=== PATIENT | female | born 1980 | race Caucasian/White ===

== ENCOUNTER 2019-10-07 09:51 | Emergency (ER) | payer OTHER, SELFPAY ==
[2019-10-07 10:33] LABS: Absolute Lymphocytes (CBC) 1.2 K/uL (0.7-4.9); Basophils % 0.4 % (0-1.3); Hematocrit 42.1 % (36.0-45.0); Lymphocytes % 14.2 % (15.3-44.8); MPV 7.6 fL (7.6-11.3); RBC Red Blood Cell Count 4.37 M/uL (3.86-4.86)
[2019-10-07 10:52] LABS: BUN Blood Urea Nitrogen 4 mg/dL (7-18); Bicarbonate 24 mmol/L (21-32); Glucose Level 113 mg/dL (74-106); Potassium 3.4 mmol/L (3.5-5.1); Sodium Level 140 mmol/L (136-145)
--- NOTE | 2019-10-07 11:36 | RAD REPORT ---
EXAM DESCRIPTION: Maribell Single View10/07/2019 10:45 am CLINICAL HISTORY: cough COMPARISON: 2012 FINDINGS: The lungs appear clear of acute infiltrate. The heart is normal size IMPRESSION: No acute abnormalities displayed
--- NOTE | 2019-10-07 11:39 | EDPHYS ---
Physician Documentation [facility] Name: Dinora Crocker Age: 39 yrs Sex: Female : 1980 Arrival Date: 10/07/2019 Time: 09:53 Bed 14 Private MD: ED Physician Martín Bran HPI: 10/06 10:14 This 39 yrs old Female presents to ER via Unassigned with complaints of rn Breathing Difficulty, Nausea. 10:14 The patient has shortness of breath at rest. Onset: The symptoms/episode began/occurred rn yesterday. Duration: The symptoms are intermittent. The patient's shortness of breath is aggravated by coughing, supine position. Associated signs and symptoms: Pertinent positives: non-productive cough, diarrhea, Pertinent negatives: chest pain, hemoptysis. Severity of symptoms: At their worst the symptoms were mild in the emergency department the symptoms are unchanged. The patient has not experienced similar symptoms in the past. The patient has been recently seen by a physician:. Reports 1 week of not feeling ok, with runny nose/non-productive cough/diarrhea/fatigue. Had telemedicine visit, given cough medication and augmentin, shortness of breath began yesterday. + smoker. . 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 - Social history:: Smoking status: Patient reports the use of cigarette tobacco products, smokes one pack cigarettes per day. - Family history:: not pertinent. - Hospitalizations: : No recent hospitalization is reported. 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 Exam: 10:14 Constitutional: This is a well developed, well nourished patient who is awake, alert, rn and in no acute distress. Head/Face: Normocephalic, atraumatic. Eyes: Conjunctiva and sclera are non-icteric and not injected. Neck: trachea midline, non-tender mild cervical LAD Cardiovascular: Regular rate and rhythm. No pulse deficits. Respiratory: No increased work of breathing, no retractions or nasal flaring. Speaking full sentences Skin: Dry, no diaphoresis Neuro: Awake and alert, GCS 15 11:03 ECG was reviewed by the Attending Physician. rn Vital Signs: 10:00 BP 116 / 77; Pulse 99; Resp 19 S; Temp 98.7(O); Pulse Ox 100% on R/A; Pain 0/10; jl7 11:30 BP 110 / 75; Pulse 89; Resp 16 S; Pulse Ox 100% on R/A; jl7 MDM: 09:56 Patient medically screened. rn 10:26 ED course: Already swabbed for COVID-19 yesterday. . rn 11:10 ED course: Pt has not had a PE in > 20 years, has subjective fever/nasal congestion/dry rn cough. Will add steroids and inhaler with return precautions. Already on Abx. Seems more viral but will complete her abx. Will isolate at home awaiting her COVID testing.. 11:38 Differential diagnosis: Bronchitis Chronic Obstructive Pulmonary Disease pneumonia, rn Pneumothorax pulmonary edema, reactive airway disease. Data reviewed: vital signs, nurses notes, lab test result(s), EKG, radiologic studies, plain films, and as a result, I will discharge patient. Test interpretation: by ED physician or midlevel provider: ECG, plain radiologic studies, CXR neg for acute infiltrate. Counseling: I had a detailed discussion with the patient and/or guardian regarding: the historical points, exam findings, and any diagnostic results supporting the discharge/admit diagnosis, lab results, radiology results, the need for outpatient follow up, to return to the emergency department if symptoms worsen or persist or if there are any questions or concerns that arise at home. Special discussion: I discussed with the patient/guardian in detail that at this point there is no indication for admission to the hospital. It is understood, however, that if the symptoms persist or worsen the patient needs to return immediately for re-evaluation. 10/06 10:14 Order name: CBC with Diff; Complete Time: 11:07 rn 10/06 10:14 Order name: Basic Metabolic Panel; Complete Time: 11:07 rn 10/06 10:14 Order name: XRAY Chest (1 view); Complete Time: 11:38 rn 10/06 10:14 Order name: Flu; Complete Time: 11: rn 10/06 10:14 Order name: Strep; Complete Time: 11: rn 10/06 11:08 Order name: Throat Culture EDMS 10/06 10:14 Order name: IV Start; Complete Time: 10:44 rn 10/06 10:14 Order name: EKG; Complete Time: 10:14 rn 10/06 10:14 Order name: EKG - Nurse/Tech; Complete Time: 11:05 rn EC:03 Rate is 80 beats/min. Rhythm is regular. QRS [place] is Normal. AR interval is shortened rn at 110 msec. QRS interval is normal. QT interval is normal. No Q waves. T waves are Normal. No ST changes noted. Clinical impression: Normal ECG and Short AR. Interpreted by me. Reviewed by me. Administered Medications: 12:02 Drug: Zofran (Ondansetron) 4 mg Route: IVP; Site: right antecubital; jl7 12:10 Follow up: Response: No adverse reaction; Nausea is decreased jl7 Disposition: 10/07/19 11:39 Discharged to Home. Impression: Dyspnea, unspecified, Viral Syndrome. - Condition is Stable. - Discharge Instructions: Shortness of Breath, Steps to Quit Smoking, Viral Respiratory Infection. - Prescriptions for Prednisone 20 mg Oral Tablet - take 3 tablet by ORAL route once daily for 5 days; 15 tablet. Albuterol Sulfate 90 mcg/actuation - inhale 1-2 puff by INHALATION route every 4-6 hours; 1 Inhaler. Zofran ODT 4 mg Oral tablet,disintegrating - place 1 tablet by TRANSLINGUAL route every 8 hours As needed; 20 tablet. - Medication Reconciliation Form, Thank You Letter, Antibiotic Education, Prescription Opioid Use form. - Follow up: Private Physician; When: As needed; Reason: Recheck today's complaints, Re-evaluation by your physician. - Problem is new. - Symptoms have improved. Signatures: Dispatcher [employer] EDMartín Jama MD MD rn Leal, Jahala, RN RN jl7 Corrections: (The following items were deleted from the chart) 12:14 11:39 10/07/2019 11:39 Discharged to Home. Impression: Dyspnea, unspecified; Viral jl7 Syndrome. Condition is Stable. Discharge Instructions: Shortness of Breath, Steps to Quit Smoking, Viral Respiratory Infection. Prescriptions for Prednisone 20 mg Oral Tablet - take 3 tablet by ORAL route once daily for 5 days; 15 tablet, Albuterol Sulfate 90 mcg/actuation - inhale 1-2 puff by INHALATION route every 4-6 hours; 1 Inhaler. and Forms are Medication Reconciliation Form, Thank You Letter, Antibiotic Education, Prescription Opioid Use. Follow up: Private Physician; When: As needed; Reason: Recheck today's complaints, Re-evaluation by your physician. Problem is new. Symptoms have improved. rn
--- NOTE | 2019-10-07 11:39 | ER ---
Nurse's Notes [facility] Name: Dinora Crocker Age: 39 yrs Sex: Female : 1980 Arrival Date: 10/07/2019 Time: 09:53 Bed 14 Private MD: Diagnosis: Dyspnea, unspecified;Viral Syndrome Presentation: 10/06 10:00 Chief complaint: Patient states: Diarrhea started Wednesday, cough and shortness of breath jl7 with temp of 99.5 started Wednesday, shortness of breath got worse yesterday. Was swabbed for the flu and COVID-19 yesterday at 1720 and have not gotten results, "I still feel like I cannot breath.". Coronavirus screen: Surgical mask placed on patient. Patient moved to private room, placed in contact and droplet isolation with eye protection until further assessment. Patient reports a cough. Patient reports shortness of breath or difficulty breathing. Patient denies measured and/or subjective temperature greater than 100.4F. Patient denies travel on a cruise ship or to a country the [facility] currently lists as an affected area. Patient denies contact with known and/or suspected case of COVID-19. Ebola Screen: No symptoms or risks identified at this time. Initial Sepsis Screen: Does the patient meet any 2 criteria? No. Patient's initial sepsis screen is negative. Does the patient have a suspected source of infection? No. Patient's initial sepsis screen is negative. Risk Assessment: Do you want to hurt yourself or someone else? Patient reports no desire to harm self or others. Onset of symptoms was October 02, 2019. 10:00 Method Of Arrival: Ambulatory jl7 10:00 Acuity: FRANCY 3 jl7 Triage Assessment: 10:00 General: Appears in no apparent distress. uncomfortable, Behavior is calm, cooperative, jl7 appropriate for age. Pain: Denies pain. EENT: Throat is clear. Neuro: Level of Consciousness is awake, alert, obeys commands, Oriented to person, place, time, situation. Cardiovascular: Patient's skin is warm and dry. Respiratory: Reports shortness of breath at rest Onset: The symptoms/episode began/occurred gradually, the patient has mild shortness of breath. Derm: Skin is pink, warm \\T\\ dry. 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 - Social history:: Smoking status: Patient reports the use of cigarette tobacco products, smokes one pack cigarettes per day. - Family history:: not pertinent. - Hospitalizations: : No recent hospitalization is reported. Screenin:30 Abuse screen: Denies threats or abuse. Denies injuries from another. Nutritional jl7 screening: No deficits noted. Tuberculosis screening: No symptoms or risk factors identified. Fall Risk IV access (20 points). Assessment: 10:00 General: See triage assessment. jl7 11:05 Reassessment: Patient appears in no apparent distress at this time. Patient and/or jl7 family updated on plan of care and expected duration. Pain level reassessed. Patient is alert, oriented x 3, equal unlabored respirations, skin warm/dry/pink. Cardiovascular: Rhythm is regular. Respiratory: Airway is patent Respiratory effort is even, unlabored, Respiratory pattern is regular, symmetrical, Not auscultated. Vital Signs: 10:00 BP 116 / 77; Pulse 99; Resp 19 S; Temp 98.7(O); Pulse Ox 100% on R/A; Pain 0/10; jl7 11:30 BP 110 / 75; Pulse 89; Resp 16 S; Pulse Ox 100% on R/A; jl7 ED Course: 09:53 Patient arrived in ED. ag5 09:56 Martín Bran MD is Attending Physician. rn 09:58 Taty Ayala RN is Primary Nurse. jl7 10:00 Arm band placed on right wrist. jl7 10:30 Patient has correct armband on for positive identification. Bed in low position. Call jl7 light in reach. Side rails up X 1. Pulse ox on. NIBP on. 10:30 Initial lab(s) drawn, by me, sent to lab. Flu and/or RSV swab sent to lab. Strep swab jl7 sent to lab. Inserted saline lock: 22 gauge in right antecubital area, using aseptic technique. Blood collected. 10:32 Triage completed. jl7 10:45 XRAY Chest (1 view) In Process Unspecified. EDMS 11:07 EKG done. jl7 12:12 No provider procedures requiring assistance completed. IV discontinued, intact, jl7 bleeding controlled, No redness/swelling at site. Pressure dressing applied. Administered Medications: 12:02 Drug: Zofran (Ondansetron) 4 mg Route: IVP; Site: right antecubital; jl7 12:10 Follow up: Response: No adverse reaction; Nausea is decreased jl7 Outcome: 11:39 Discharge ordered by . rn 12:12 Discharged to home ambulatory. jl7 12:12 Condition: stable 12:12 Discharge instructions given to patient, Instructed on discharge instructions, follow up and referral plans. medication usage, Demonstrated understanding of instructions, follow-up care, medications, Prescriptions given X 3. 12:14 Patient left the ED. jl7 Signatures: Dispatcher [employer] EDMS Martín Bran MD MD rn Leal, Jahala, RN RN jl7 Gaskin, Ajare ag5
[2019-10-07] MEDS ORDERED: ONDANSETRON 4 MG/2 ML VIAL ONE (12:06)
[2019-10-07 12:21] VITALS: TEMP 98.7; O2SAT 100
[2019-10-07 12:23] VITALS: BP 110/75
--- NOTE | 2019-10-09 16:52 | EKG ---
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
== END 2019-10-07 12:14 | disposition home or self-care (01) ==
LOC: ER 09:51
DX: B34.9 Viral infection, unspecified (principal); R06.00 Dyspnea, unspecified; Z88.6 Allergy status to analgesic agent; Z88.1 Allergy status to other antibiotic agents; F17.210 Nicotine dependence, cigarettes, uncomplicated
CPT/HCPCS: 36415; 71045; 80048; 85025; 87070; 87081; 87804; 93005; 96374; 99284; J2405

== ENCOUNTER 2020-01-31 13:00 | Emergency (ER) | payer SELFPAY ==
[2020-01-31 13:44] LABS: Absolute Lymphocytes (CBC) 1.8 K/uL (0.7-4.9); Basophils % 0.6 % (0-1.3); Hematocrit 42.3 % (36.0-45.0); MPV 7.6 fL (7.6-11.3); RBC Red Blood Cell Count 4.45 M/uL (3.86-4.86)
[2020-01-31] MEDS ORDERED: MORPHINE 4 MG/ML SYR ONE (13:47)
[2020-01-31] MEDS ORDERED: ONDANSETRON 4 MG/2 ML VIAL ONE (13:47)
[2020-01-31 14:01] LABS: Bilirubin Direct 0.1 mg/dL (0-0.2); Bilirubin Total 0.6 mg/dL (0.2-1.0); Protein, Total 8.2 g/dL (6.4-8.2)
--- NOTE | 2020-01-31 14:48 | RAD REPORT ---
EXAM DESCRIPTION: CT - Abdomen Pelvis W Contrast - 01/31/2020 2:16 pm CLINICAL HISTORY: ABD PAIN, patient details chronic abdominal pain with worsening left-sided pain fo r the last 3 days, prior hysterectomy COMPARISON: CT ABD PELVIS W CONTRAST dated 10/15/2012 TECHNIQUE: Biphasic, helical CT imaging of the abdomen and pelvis was performed following 100 ml non -ionic IV contrast. No oral contrast administered. All CT scans are performed using dose optimization technique as appropriate and may include automated exposure control or mA/KV adjustment according to patient size. FINDINGS: No suspicious findings in the lung bases. Diffuse fatty infiltration present in the liver. Portal vein shows no suspicious finding. No focal li bartolo lesion. Spleen and pancreas without significant finding. Gallbladder and biliary tree are also wi thout suspicious finding. Symmetric renal function is seen with no hydronephrosis or suspicious renal mass. No pyelonephritis o r acute parenchymal process. Urinary bladder is fully contracted limiting detail. Phleboliths are see n in the pelvis. No adrenal abnormalities. Uterus is absent. Slight fullness of the left ovary is imp roved since prior imaging. No right ovarian abnormality. No dilated bowel loops or bowel wall thickening. Patient has very few left-sided diverticula. No dive rticulitis findings. No free air, free fluid or inflammatory stranding. No hernia, mass or bulky lym phadenopathy. Advanced for age degenerative change present at the L5-S1 disc space. Disc space is narrowed. There a re sclerotic changes the endplates, endplate spurring and degenerative gas in the disc space. IMPRESSION: As detailed above, contrast-enhanced CT abdomen and pelvis imaging shows no acute or act ngozi process. Specifically, no abnormality to explain left-sided abdominal pain. Patient has diffuse fatty infiltration of the liver. Patient has very advanced for age degenerative change at the L5-S1 disc level.
--- NOTE | 2020-01-31 15:05 | ER ---
Nurse's Notes [facility] Name: Dinora Crocker Age: 39 yrs Sex: Female : 1980 Arrival Date: 01/31/2020 Time: 13:02 Bed 5 Private MD: Diagnosis: Abdominal and pelvic pain Presentation: 01/30 13:10 Chief complaint: Patient states: has had gas pains for years, left sided abd pain X 3 iw days, pain radiates upward, worse after eating and lying on side, also has nausea and mild diarrhea. Coronavirus screen: Patient denies a cough. Patient denies shortness of breath or difficulty breathing. Patient denies measured and/or subjective temperature greater than 100.4F prior to today's visit. Patient denies travel on a cruise ship or to a country the [facility] currently lists as an affected area. Patient denies contact with known and/or suspected case of COVID-19. Ebola Screen: Patient negative for fever greater than or equal to 101.5 degrees Fahrenheit, and additional compatible Ebola Virus Disease symptoms Patient denies exposure to infectious person. Patient denies travel to an Ebola-affected area in the 21 days before illness onset. No symptoms or risks identified at this time. Initial Sepsis Screen: Does the patient meet any 2 criteria? No. Patient's initial sepsis screen is negative. Does the patient have a suspected source of infection? No. Patient's initial sepsis screen is negative. Risk Assessment: Do you want to hurt yourself or someone else? Patient reports no desire to harm self or others. Onset of symptoms was January 28, 2020. 13:10 Method Of Arrival: Ambulatory iw 13:10 Acuity: FRANCY 3 iw Triage Assessment: 13:19 General: Appears in no apparent distress. Behavior is calm, cooperative. Pain: ks7 Complains of pain in abdomen left side. GI: Reports lower abdominal pain, diarrhea, nausea, since 3 days, left sided. 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 - Social history:: Smoking status: Patient/guardian denies using tobacco, Stopped _ months ago 4. Screenin:43 Abuse screen: Denies threats or abuse. Denies injuries from another. Nutritional ks7 screening: No deficits noted. Tuberculosis screening: No symptoms or risk factors identified. Fall Risk None identified. Assessment: 13:42 Reassessment: attempted to start NS IV fluids, IV infiltrated. will start another line. ks7 13:43 Reassessment: Patient is alert, oriented x 3, equal unlabored respirations, skin ks7 warm/dry/pink. General: Appears uncomfortable, Behavior is calm, cooperative. Pain: Complains of pain in abdomen left upper and lower Pain currently is 4 out of 10 on a pain scale. at worst was 8 out of 10 on a pain scale. Quality of pain is described as shooting, Pain began 2-3 days ago. GI: Bowel sounds present X 4 quads. Abd is soft and non tender in left upper quadrant and left lower quadrant Abd is soft Reports diarrhea, nausea. 14:30 Reassessment: Patient is alert, oriented x 3, equal unlabored respirations, skin ks7 warm/dry/pink. 15:30 Reassessment: Patient is alert, oriented x 3, equal unlabored respirations, skin ks7 warm/dry/pink. Vital Signs: 13:10 BP 109 / 77; Pulse 99; Resp 16 S; Pulse Ox 97% on R/A; Weight 86.18 kg; Height 5 ft. 5 iw in. (165.10 cm); Pain 5/10; 13:19 BP 97 / 74; Pulse 95; Resp 18; Pulse Ox 97% on R/A; ks7 13:46 BP 110 / 74; Pulse 89; Resp 18; Pulse Ox 97% on R/A; Pain 4/10; ks7 14:30 BP 99 / 60; Pulse 66; Resp 18; Temp 99(O); Pulse Ox 99% ; Pain 2/10; ks7 15:29 BP 106 / 69; Pulse 65; Resp 18; Temp 99.1; Pulse Ox 99% ; Pain 2/10; ks7 15:30 Pain 2/10; ks7 15:31 Pulse Ox 99% ; Pain 2/10; ks7 13:10 Body Mass Index 31.62 (86.18 kg, 165.10 cm) iw ED Course: 13:02 Patient arrived in ED. as 13:07 Verona Amaro, ZENIA is Primary Nurse. ks7 13:10 Efrain Huerta MD is Attending Physician. kdr 13:13 Triage completed. iw 13:15 Arm band placed on. iw 13:25 Inserted saline lock: 20 gauge in right antecubital area, using aseptic technique. mt Blood collected. 13:42 Basic Metabolic Panel Sent. ks7 13:42 CBC with Diff Sent. ks7 13:42 Hepatic Function Sent. ks7 13:42 Lipase Sent. ks7 13:43 pt ambulated to bathroom, steady on feet. urine sample collected. ks7 13:43 Patient has correct armband on for positive identification. Bed in low position. Call ks7 light in reach. Side rails up X2. 13:43 No provider procedures requiring assistance completed. IV discontinued, intact, ks7 bleeding controlled, No redness/swelling at site. R AC IV infiltrated. 13:52 Inserted saline lock: 22 gauge in left forearm, using aseptic technique. jl7 14:14 CT Abd/Pelvis - IV Contrast Only In Process Unspecified. EDMS 14:30 Patient moved back from CT. ks7 15:30 IV discontinued, intact, bleeding controlled, No redness/swelling at site. Pressure ks7 dressing applied. Administered Medications: Discontinued: NS 0.9% 1000 ml IV at 1 bolus Per protocol; 1000 mL bolus 13:51 Drug: NS 0.9% 1000 ml Route: IV; Rate: 1 bolus; Site: left forearm; jl7 13:51 Drug: morphine 4 mg Route: IVP; Site: left forearm; jl7 15:30 Follow up: Pain 2/10 Adult ks7 13:51 Drug: Zofran (Ondansetron) 4 mg Route: IVP; Site: left forearm; jl7 15:31 Follow up: Pulse Ox 99% ; Pain 2/10 Adult ks7 Outcome: 15:04 Discharge ordered by . kdr 15:30 Discharged to home ambulatory. ks7 15:30 Condition: good 15:30 Discharge instructions given to patient, Instructed on discharge instructions, medication usage, Demonstrated understanding of instructions, medications, Prescriptions given X 4. 15:32 Patient left the ED. ks7 Signatures: Dispatcher [employer] EDMS Efrain Huerta MD MD kdr Martinez, Amelia as Williams, Irene, RN RN iw Taty Ayala RN RN jl7 Thompson, Moriah mt Songcuan, Kathleen, RN RN ks7 Corrections: (The following items were deleted from the chart) 13:15 13:13 PMHx: NTHFR; rosio avelar
--- NOTE | 2020-01-31 15:05 | EDPHYS ---
Physician Documentation [facility] Name: Dinora Crocker Age: 39 yrs Sex: Female : 1980 Arrival Date: 01/31/2020 Time: 13:02 Bed 5 Private MD: ED Physician Efrain Huerta HPI: 01/30 14:51 This 39 yrs old Female presents to ER via Ambulatory with complaints of kdr Abdominal Pain. 14:51 The patient presents with abdominal pain in the epigastric area, in the upper abdomen, kdr in the left upper quadrant. Onset: The symptoms/episode began/occurred gradually, 3 day(s) ago. The symptoms do not radiate. Associated signs and symptoms: Pertinent positives: nausea, Pertinent negatives: anorexia, blood in stools, chest pain, constipation, diarrhea, dysuria, fever, headache, hematuria, palpitations, shortness of breath, vaginal discharge, vomiting. Modifying factors: The symptoms are alleviated by nothing, the symptoms are aggravated by breathing deeply, medication(s), touching the area, walking. Severity of pain: At its worst the pain was moderate severe just prior to arrival, in the emergency department the pain has improved. The patient has not experienced similar symptoms in the past, States she has had chronic gas pain but this is different and worse today. The patient has not recently seen a physician. 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 - Social history:: Smoking status: Patient/guardian denies using tobacco, Stopped _ months ago 4. ROS: 14:51 Constitutional: Negative for fever, chills, and weight loss, Eyes: Negative for injury, kdr pain, redness, and discharge, ENT: Negative for injury, pain, and discharge, Neck: Negative for injury, pain, and swelling, Cardiovascular: Negative for chest pain, palpitations, and edema, Respiratory: Negative for shortness of breath, cough, wheezing, and pleuritic chest pain, Back: Negative for injury and pain, : Negative for injury, bleeding, discharge, and swelling, MS/Extremity: Negative for injury and deformity, Skin: Negative for injury, rash, and discoloration, Neuro: Negative for headache, weakness, numbness, tingling, and seizure activity. Psych: Negative for depression, anxiety, suicide ideation, homicidal ideation, and hallucinations, Allergy/Immunology: Negative for hives, rash, and allergies, Endocrine: Negative for neck swelling, polydipsia, polyuria, polyphagia, and marked weight changes, Hematologic/Lymphatic: Negative for swollen nodes, abnormal bleeding, and unusual bruising. 14:51 Abdomen/GI: Positive for abdominal pain, nausea, diarrhea, Negative for black/tarry stool, rectal pain, rectal bleeding, bowel incontinence. Exam: 14:51 Constitutional: This is a well developed, well nourished patient who is awake, alert, kdr and in no acute distress. Head/Face: Normocephalic, atraumatic. Eyes: Pupils equal round and reactive to light, extra-ocular motions intact. Lids and lashes normal. Conjunctiva and sclera are non-icteric and not injected. Cornea within normal limits. Periorbital areas with no swelling, redness, or edema. Neck: Trachea midline, no thyromegaly or masses palpated, and no cervical lymphadenopathy. Supple, full range of motion without nuchal rigidity, or vertebral point tenderness. No Meningismus. Chest/axilla: Normal chest wall appearance and motion. Nontender with no deformity. No lesions are appreciated. Cardiovascular: Regular rate and rhythm with a normal S1 and S2. No gallops, murmurs, or rubs. Normal PMI, no JVD. No pulse deficits. Respiratory: Lungs have equal breath sounds bilaterally, clear to auscultation and percussion. No rales, rhonchi or wheezes noted. No increased work of breathing, no retractions or nasal flaring. Back: No spinal tenderness. No costovertebral tenderness. Full range of motion. Skin: Warm, dry with normal turgor. Normal color with no rashes, no lesions, and no evidence of cellulitis. MS/ Extremity: Pulses equal, no cyanosis. Neurovascular intact. Full, normal range of motion. Neuro: Awake and alert, GCS 15, oriented to person, place, time, and situation. Cranial nerves II-XII grossly intact. Motor strength 5/5 in all extremities. Sensory grossly intact. Cerebellar exam normal. Normal gait. Psych: Awake, alert, with orientation to person, place and time. Behavior, mood, and affect are within normal limits. 14:51 Abdomen/GI: Inspection: obese Bowel sounds: active, diminished, in all quadrants, Palpation: soft, mild abdominal tenderness, in the anterior aspect of left lateral abdomen and left upper quadrant. Vital Signs: 13:10 BP 109 / 77; Pulse 99; Resp 16 S; Pulse Ox 97% on R/A; Weight 86.18 kg; Height 5 ft. 5 iw in. (165.10 cm); Pain 5/10; 13:19 BP 97 / 74; Pulse 95; Resp 18; Pulse Ox 97% on R/A; ks7 13:46 BP 110 / 74; Pulse 89; Resp 18; Pulse Ox 97% on R/A; Pain 4/10; ks7 14:30 BP 99 / 60; Pulse 66; Resp 18; Temp 99(O); Pulse Ox 99% ; Pain 2/10; ks7 15:29 BP 106 / 69; Pulse 65; Resp 18; Temp 99.1; Pulse Ox 99% ; Pain 2/10; ks7 15:30 Pain 2/10; ks7 15:31 Pulse Ox 99% ; Pain 2/10; ks7 13:10 Body Mass Index 31.62 (86.18 kg, 165.10 cm) iw MDM: 14:51 Data reviewed: vital signs, nurses notes, lab test result(s), radiologic studies. kdr Counseling: I had a detailed discussion with the patient and/or guardian regarding: the historical points, exam findings, and any diagnostic results supporting the discharge/admit diagnosis, lab results, radiology results, the need for outpatient follow up. 15:04 Patient medically screened. kdr 01/30 13:11 Order name: Basic Metabolic Panel; Complete Time: 14:30 kdr 01/30 13:11 Order name: CBC with Diff; Complete Time: 14:30 kdr 01/30 13:11 Order name: Hepatic Function; Complete Time: 14:30 kdr 01/30 13:11 Order name: Lipase; Complete Time: 14:30 kdr 01/30 13:26 Order name: CT Abd/Pelvis - IV Contrast Only; Complete Time: 14:57 kdr 01/30 14:23 Order name: CREATININE WHOLE BLOOD; Complete Time: 14:30 [facility] 01/30 13:11 Order name: IV Saline Lock; Complete Time: 13:26 kdr 01/30 13:11 Order name: Labs collected and sent; Complete Time: 13:26 kdr 01/30 13:11 Order name: Urine Dipstick-Ancillary (obtain specimen); Complete Time: 13:36 kdr Administered Medications: Discontinued: NS 0.9% 1000 ml IV at 1 bolus Per protocol; 1000 mL bolus 13:51 Drug: NS 0.9% 1000 ml Route: IV; Rate: 1 bolus; Site: left forearm; jl7 13:51 Drug: morphine 4 mg Route: IVP; Site: left forearm; jl7 15:30 Follow up: Pain 2/10 Adult ks7 13:51 Drug: Zofran (Ondansetron) 4 mg Route: IVP; Site: left forearm; jl7 15:31 Follow up: Pulse Ox 99% ; Pain 2 Adult ks7 Disposition: 01/31/20 15:04 Discharged to Home. Impression: Abdominal and pelvic pain. - Condition is Stable. - Discharge Instructions: Abdominal Pain, Adult, Pcay-ib-Eesu. - Prescriptions for Bentyl 20 mg Oral Tablet - take 1 tablet by ORAL route every 6 hours As needed; 20 tablet. Pepcid 20 mg Oral Tablet - take 1 tablet by ORAL route every 12 hours for 5 days; 10 tablet. Zofran 4 mg Oral Tablet - take 1 tablet by ORAL route every 4-6 hours As needed; 12 tablet. Tramadol 50 mg Oral Tablet - take 1 tablet by ORAL route every 8 hours as needed; 12 tablet. - Medication Reconciliation Form, Thank You Letter, Prescription Opioid Use form. - Follow up: Private Physician; When: 2 - 3 days; Reason: If symptoms return, Further diagnostic work-up, Recheck today's complaints, Continuance of care, Re-evaluation by your physician. - Problem is an ongoing problem. - Symptoms have improved. Signatures: Dispatcher [employer] EDMS Efrain Huerta MD MD kdr Lupe Goldstein RN RN iw Leal, Jahala, RN RN jl7 Verona Amaro RN RN ks7 Corrections: (The following items were deleted from the chart) 13:15 13:13 PMHx: NTHFR; iw iw 15:32 15:04 01/31/2020 15:04 Discharged to Home. Impression: Abdominal and pelvic pain. ks7 Condition is Stable. Forms are Medication Reconciliation Form, Thank You Letter, Antibiotic Education, Prescription Opioid Use. Follow up: Private Physician; When: 2 - 3 days; Reason: If symptoms return, Further diagnostic work-up, Recheck today's complaints, Continuance of care, Re-evaluation by your physician. Problem is an ongoing problem. Symptoms have improved. kdr
[2020-01-31 15:58] VITALS: O2SAT 99
[2020-01-31 15:59] VITALS: BP 106/69; TEMP 99.1
== END 2020-01-31 15:32 | disposition home or self-care (01) ==
LOC: ER 13:00
DX: R10.2 Pelvic and perineal pain (principal); Z88.1 Allergy status to other antibiotic agents; Z88.5 Allergy status to narcotic agent; Z88.8 Allergy status to other drugs, medicaments and biological substances
CPT/HCPCS: 36415; 74177; 80048; 80076; 82565; 83690; 85025; J2405

== ENCOUNTER 2023-09-15 08:25 | Inpatient (IN) | payer OTHER ==
--- OUTSIDE RECORDS SUMMARY | 2023-09-15 08:29 | XMS REPORT | Continuity of Care Document ---
Author Name Unknown Address [address] [place] [address] [facility] thconnect Address [address] [place] [address] Care Team Providers Care Rodding Anode Worker Name Role Phone JUDAH, DR DELAROSA Attending Clinician Evon SO, DR DELAROSA Attending Clinician Evon SO, DR DELAROSA Admitting Clinician Evon alcaraz Payers Payer Name Policy Type Policy Number Effective Date Expirati on Date Source [id number] 1959 00:00:00 Allergies, Adverse Reactions, Alerts Allergy Name Allergy Type Status Severity Reaction(s) Onset Date Inactive Date Treating Clinician Comments Source Bactrim DA Active Unknown Hives 09-09 00:00: 00 [facility] Hydrocod one DA Active Unknown Hives 09-09 00:00: 00 [facility] Advil DA Active Unknown Hives 09-09 00:00: 00 [facility] Adhesive DA Active Unknown Rash 09-09 00:00: 00 [facility] Vital Signs Vital Name Observation Time Observation Value Comments S ource Height 2023-09-13 11:30:00 13.97 CM Weight 2023-09-13 11:30:00 203 KG Height 2023-09-10 11:50:00 165.1 CM Weight 2023-09-10 11:50:00 90.71 KG Height 2023-09-10 11:50:00 165.1 CM Weight 2023-09-10 11:50:00 90.71 KG Encounters Start Date/Time End Date/Time Encounter Type Admission Type Attending Clinicians Care Facility Care Department Encounter ID Source 2023-09-13 00:00:00 Inpatient [facility] [id number] [facility] 2023-09-13 10:26:00 2023-09-13 16:09:00 Outpatient [facility] [id number] [facility] 2023-09-10 09:15:00 2023-09-10 17:50:00 Outpatient [facility] [id number] [facility] 2023-09-10 09:15:00 2023-09-10 17:50:00 Outpatient [facility] [id number] [facility] Results Test Description Test Time Test Comments Results Result Co mments Source HEPATITIS A IGM [id number] 14:23:00* Test Item Value Reference Range Interpretation Comme [facility] HEPATITIS A IGM (test code = 91168249) NON-REACTIVE NON-REACTIVE For additional information, please refer [email or web address].[email or web address] q/YUV250(This link is being provided for informational/educati onal purposes only.)TEST PERFORMED AT:[facility] [address] [id number] JAYY JIMENEZ MD,PHD. HEPATITIS C [id number] 14:57:00* Test Item Value Reference Range Interpretation Comme nts HCAB (test code = HCAB) NON-REACTIVE NON-REACTIVE [id number] 14:51:00* Test Item Value Reference Range Interpretation Comme nts HIV-1,2 Ab \T\ p24 Ag (test code = CHIV) NON-REACTIVE NON-REACTIVE HEPATITIS B SURFACE [id number] 14:30:00* Test Item Value Reference Range Interpretation Comme nts HBSAG (test code = HBSAG) NON-REACTIVE NON-REACTIVE SERUM [id number] 14:13:00* Test Item Value Reference Range Interpretation Comme nts PREG SRM (test code = PGS) NEGATIVE NEGATIVE [id number] 14:11:00* Test Item Value Reference Range Interpretation Comme nts Hb A1C % (test code = HBA) 5.4 % 3.8-6.4 A1C % (test code = A1C) HbA1c (% ) Reference Range Normal <5.7 Prediabetes 5.7-6.4 Diabetic >=6.5 COMPREHENSIVE METABOLIC [id number] 14:11:00* Test Item Value Reference Range Interpretation Comme nts GLUCOSE (test code = 06D) 87 mg/dL 75-100 SODIUM (test code = 01A) 140 mmol/L 136-145 POTASSIUM (test code = 01B) 4.2 mmol/L 3.6-5.1 CHLORIDE (test code = 04A) 103 mmol/L 98-107 CO2 (test code = 02A) 31 mmol/L 20-31 ANION GAP (test code = ANG) 10.2 mmol/L BUN (test code = 05D) 13 mg/dL 9-23 CREATININE (test code = 03E) 0.8 mg/dL 0.6-1.0 GFR (test code = GFR) 94 mL/min/1.73m\S\2 >=90 EGFR (test code = EGFR) eGFR BY CKD-EPI CALCULATION IS NOT RECOMMENDED FOR PATIENTS UNDER 18 YEARS OF AGE. BUN/CREA (test code = BCR) 16 12-20 CALCIUM (test code = 09D) 9.8 mg/dL 8.3-10.6 BILI TOTAL (test code = 11A) 0.8 mg/dL 0.2-1.0 PROTEIN (test code = 07D) 7.3 g/dL 5.7-8.2 ALBUMIN (test code = 08D) 4.7 g/dL 3.2-4.8 GLOBULIN (test code = GLB) 2.6 g/dL 1.5-3.8 ALB/GLOB (test code = AGRR) 1.8 1.0-2.6 ALK PHOS (test code = 35A) 55 IU/L 46-116 AST (test code = 30A) 14 IU/L <=33 ALT (test code = 31A) 19 IU/L 10-49 LIPID [id number] 14:11:00* Test Item Value Reference Range Interpretation Comme nts CHOLESTROL (test code = 44A) 211 mg/dL <=199 H TRIGLYCERI (test code = 42B) 138 mg/dL <=149 HDL (test code = 83D) 60.7 mg/dL 40.0-60.0 H LDL (test code = 34B) 136 mg/dL <=99 H CHL/HDL (test code = CHR) 3.5 0.0-3.4 H PRO TIME AND [id number] 14:10:00* Test Item Value Reference Range Interpretation Comme nts PT (test code = TT) 11.1 s 9.8-13.6 INR (test code = INR) 1.0 INRH (test code = INRH) SUGGESTED THERAPEUTIC RANGE FOR INR: 2.5 - 3.5 For Patients with Prosthetic Valves or Patients with recurrent Thromboembolic Events 2.0 - 3.0 For Most Other Applications PTT (test code = PTT) 24.7 s 20.2-38.0 PTTH (test code = PTTH) To monitor the effectiveness of heparin, we offer the Anti-Xa (Heparin Assay). It can be used for either unfractionated or LMW Heparin. Order Code is ANTI-XA CBC (INCLUDES AUTOMATED DIFFERENTIAL)2023-09-09 13:56:00* Test Item Value Reference Range Interpretation Comme nts WBC (test code = WBC) 9.4 10\S\3/uL 4.5-11.0 RBC (test code = RBC) 4.74 10\S\6/uL 4.30-5.70 HGB (test code = HBG) 14.8 g/dL 12.0-15.5 HCT (test code = HCT) 45.6 % 35.0-44.0 H MCV (test code = MCV) 96.2 fL 81.0-99.0 MCH (test code = MCH) 31.2 pg 27.0-31.0 H MCHC (test code = MCHC) 32.5 g/dL 32.0-36.0 RDW (test code = RDW) 12.5 % 11.5-14.5 PLT (test code = PLT) 275 10\S\3/uL 130-400 MPV (test code = MPV) 8.6 fL 9.4-12.4 L NEUTROP # (test code = NE#) 5.6 10\S\3/uL 1.6-8.0 LYMPH # (test code = LY#) 2.8 10\S\3/uL 1.1-3.5 MONOCYTE # (test code = MO#) 1.0 10\S\3/uL 0.0-1.1 EOSINOPH # (test code = EO#) 0.0 10\S\3/uL 0.0-0.7 BASOPHIL # (test code = BA#) 0.0 10\S\3/uL 0.0-0.3 IG # (test code = IG#) 0.03 10\S\3/uL 0.00-0.06 NRBC # (test code = NRBC#) 0.00 10\S\3/uL 0.00-0.01 NEUTROPH % (test code = NE%) 59.3 % 35.0-73.0 LYMPH % (test code = LY%) 29.5 % 20.0-55.0 MONO % (test code = MO%) 10.4 % 2.5-10.0 H EOSINOPH % (test code = EO%) 0.2 % 0.0-5.0 BASOPHIL % (test code = BA%) 0.3 % 0.0-2.0 IG % (test code = IG%) 0.3 % 0.0-0.8 NRBC% (test code = NRBC%) 0.0 % 0.0-0.2 MANDIFF (test code = MDIFF) NO RBC MORPH (test code = RBCMOR) NORMAL XR CHEST 1 [id number] 12:17:12 [facility] : 1980 Sex: FLocation Code: D4 EXAMINATION:XR CHEST 1 VIEWCLINICAL INDICATION:Female, 43 years year old with Prolapsed lumbar intervertebral disc;M51.26, G83.4, M54.16, M21.371COMPARISON: None.FINDINGS:Single view(s) of the chest submitted.Support Devices: None.Heart: Cardiac silhouette is normal in size.Mediastinum: Mediastinal contours are normal.Lungs: Pulmonary vessels are normal in size. Evidence of focal consolidation.Pleura: No pleural effusion is identified. No pneumothorax is present.Bones: Visualized skeleton is intact.IMPRESSION:No acute cardiopulmonary disease.Electronically signed by: Danny Grey MD 09/09/2023 12:[address] [facility]
[2023-09-15] MEDS ORDERED: NA CHLORIDE 0.9% 1,000 ML ONE ×2 (09:16→21:18)
[2023-09-15] MEDS ORDERED: PROMETHAZINE INJ 25 MG/ML AMP ONE (09:16)
[2023-09-15 09:24] LABS: Absolute Eosinophils 0.1 K/uL (0-0.5); Absolute Neutrophil 8.8 K/uL (1.8-8.0); Basophils % 0.4 % (0-1.3); Eosinophils % 0.9 % (0-4.4); Hematocrit 37.6 % (36.0-45.0); Hemoglobin 12.9 g/dL (12.0-15.0); Lymphocytes % 16.9 % (15.3-44.8); MCH 32.8 pg (27.0-35.0); MCHC 34.4 g/dL (32.0-36.0); MCV 95.3 fL (80-100); MPV 6.6 fL (7.6-11.3); Monocytes % 8.6 % (3.3-12.3); Neutrophils % 73.2 % (41.7-73.7); Nucleated Red Blood Cells % 0.1 % (0-0); Platelets 249 thou/uL (152-406); RBC Red Blood Cell Count 3.94 M/uL (3.86-4.86); Red Cell Distribution Width 13.4 % (12.1-15.2)
[2023-09-15 09:31] LABS: PT Prothrombin Time 11.8 SECONDS (9.5-12.5); Protime INR 1.07
--- NOTE | 2023-09-15 09:33 | RAD REPORT ---
EXAM DESCRIPTION: CT - Chest For Pe Angio - 09/15/2023 9:22 am CLINICAL HISTORY: Chest pain. dyspea COMPARISON: CTANGIO CHEST FOR PE dated 02/03/2012 TECHNIQUE: CT angiogram of the pulmonary arteries was performed with MIP. All CT scans are performed using dose optimization technique as appropriate and may include automated exposure control or mA/KV adjustment according to patient size. FINDINGS: No evidence of pulmonary thromboembolism. No acute aortic finding demonstrated. Mild bilateral ground-glass opacities are present likely representing pulmonary edema. No significant pericardial or pleural fluid. No concerning bony finding. IMPRESSION: No evidence of pulmonary thromboembolism. Mild pulmonary edema suspected.
[2023-09-15 10:32] LABS: Albumin 2.8 g/dL (3.4-5.0); Albumin/Globulin Ratio 0.9 (1.1-1.8); Anion Gap 6.5 mEq/L (5.0-15.0); Bilirubin Direct 0.1 mg/dL (0-0.2); Bilirubin Indirect, Calculated 0.4 mg/dL (0.2-0.8); Bilirubin Total 0.5 mg/dL (0.2-1.0); Globulin 3.2 g/dL (2.3-3.5); Magnesium 1.7 mg/dL (1.6-2.4); Potassium 3.5 mEq/L (3.5-5.1); Thyroid Stimulating Hormone 0.469 uIU/mL (0.358-3.740); Troponin High Sensitivity 3.8 pg/mL (<58.9)
--- NOTE | 2023-09-15 12:21 | EDPHYS ---
Physician Documentation [facility] Name: Dinora Crocker Age: 43 yrs Sex: Female : 1980 Arrival Date: 09/15/2023 Time: 08:25 Bed 7 Private MD: None, None ED Physician Rex Briscoe HPI: 09/14 09:15 This 43 yrs old Female presents to ER via Wheelchair with complaints of Dizziness, rt Shaking. 09:15 Patient had a recent discectomy and laminectomy on Wednesday. When the patient went to rt have the drain removed, it broke off and she subsequent had to have surgery on Wednesday to remove it. Since the surgery, she has felt shaky, lightheaded, nauseated, not relieved with Zofran. Patient reports having shortness of breath today without chest pain. She is concerned due to prior history of PE. Was taking Lovenox shots, was prescribed Eliquis, has been up and will pick it up. Denies other acute complaints, symptoms are moderate in severity, no other aggravating or alleviating factors.. 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 - Social history:: Smoking status: Patient/guardian denies using tobacco, the patient reports quitting approximately 4 years ago. - Family history:: not pertinent. ROS: 09:15 Abdomen/GI: Negative for abdominal pain, nausea, vomiting, diarrhea, and constipation, rt MS/Extremity: Negative for injury and deformity, 09:15 Constitutional: Positive for fatigue, malaise, 09:15 Respiratory: Positive for shortness of breath, Negative for cough, 09:15 Neuro: Positive for dizziness, Negative for altered mental status, Exam: 09:15 Constitutional: This is a well developed, well nourished patient who is awake, alert, rt and in no acute distress. Head/Face: Normocephalic, atraumatic. Chest/axilla: Normal chest wall appearance and motion. Nontender with no deformity. No lesions are appreciated. Cardiovascular: Regular rate and rhythm with a normal S1 and S2. No gallops, murmurs, or rubs. Normal PMI, no JVD. No pulse deficits. Respiratory: Lungs have equal breath sounds bilaterally, clear to auscultation and percussion. No rales, rhonchi or wheezes noted. No increased work of breathing, no retractions or nasal flaring. Abdomen/GI: Soft, non-tender, with normal bowel sounds. No distension or tympany. No guarding or rebound. No evidence of tenderness throughout. Skin: Surgical site is clean, dry, intact MS/ Extremity: Pulses equal, no cyanosis. Neurovascular intact. Full, normal range of motion. Neuro: Awake and alert, GCS 15, oriented to person, place, time, and situation. Cranial nerves II-XII grossly intact. Motor strength 5/5 in all extremities. Sensory grossly intact. Cerebellar exam normal. Normal gait. 09:51 ECG was reviewed by the Attending Physician. rt 11:11 ECG was reviewed by the Attending Physician. rt Vital Signs: 08:35 BP 122 / 72; Pulse 100; Resp 18; Temp 97.8; Pulse Ox 100% on R/A; Weight 90.72 kg; iw Height 5 ft. 5 in. ; 10:00 BP 120 / 67; Pulse 85; Resp 17; Pain 2/10; ll1 11:00 BP 118 / 73; Pulse 99; Resp 18; Pulse Ox 100% ; cp4 12:00 BP 127 / 79; Pulse 99; Resp 18; Pulse Ox 100% ; cp4 13:00 BP 116 / 61; Pulse 81; Resp 18; Temp 97.8; Pulse Ox 100% ; cp4 08:35 Body Mass Index 33.28 (90.72 kg, 165.1 cm) iw 10:00 Pain Scale: Adult ll1 MDM: 08:43 Patient medically screened. ec2 08:55 Patient medically screened. rt 13:22 Differential diagnosis: PE, dysrhythmia, dehydration, without disturbance. Data rt reviewed: vital signs, nurses notes. Consideration of Admission/Observation Patient was admitted/placed on observation. Management of patient was discussed with the following: Hospitalist: Agrees to admit. I considered the following discharge prescriptions or medication management in the emergency department Medications were administered in the Emergency Department. See MAR. Independent interpretation of the following test(s) in the Emergency Department CT Scan: My interpretation is No pneumothorax, interpretation of CT scan images. Care significantly affected by the following chronic conditions: Pulmonary embolism. Counseling: I had a detailed discussion with the patient and/or guardian regarding the historical points, exam findings, and any diagnostic results supporting the discharge/admit diagnosis, lab results, radiology results, the need for further work-up and treatment in the hospital. 09/14 09:04 Order name: Basic Metabolic Panel; Complete Time: 10:41 rt 09/14 09:04 Order name: CBC with Diff; Complete Time: 09:34 rt 09/14 09:04 Order name: LFT's; Complete Time: 10:41 rt 09/14 09:04 Order name: Magnesium; Complete Time: 10:41 rt 09/14 09:04 Order name: PT-INR; Complete Time: 09:34 rt 09/14 09:04 Order name: Troponin HS; Complete Time: 10:41 rt 09/14 09:04 Order name: TSH; Complete Time: 10:41 rt 09/14 09:36 Order name: CREATININE WHOLE BLOOD; Complete Time: 10:31 EDMS 09/14 19:17 Order name: Troponin High Sensitivity EDMS 09/14 09:04 Order name: CT Chest For PE Angio; Complete Time: 09:34 rt 09/14 12:59 Order name: Extrem Venous W Compression [place] US la1 09/14 13:48 Order name: US EDMS 09/14 09:04 Order name: EKG; Complete Time: 09:05 rt 09/14 09:04 Order name: Cardiac monitoring; Complete Time: 09:38 rt 09/14 09:04 Order name: EKG - Nurse/Tech; Complete Time: 09:38 rt 09/14 09:04 Order name: IV Saline Lock; Complete Time: 09:05 rt 09/14 09:04 Order name: Labs collected and sent; Complete Time: 09:05 rt 09/14 09:04 Order name: O2 Per Protocol; Complete Time: 09:05 rt 09/14 09:04 Order name: O2 Sat Monitoring; Complete Time: 09:05 rt 09/14 09:30 Order name: Labs - recollect needed: green top; Complete Time: 09:57 bc6 EC:51 Rate is 94 beats/min. Rhythm is regular, Normal Sinus Rhythm with No ectopy. QRS [place] rt is Normal. [place] interval is normal. QRS interval is normal. QT interval is normal. No Q waves. T waves are Normal. No ST changes noted. Interpreted by me. 11:11 Rate is 100 beats/min. Rhythm is regular, Normal Sinus Rhythm with No ectopy. QRS [place] rt is Normal. [place] interval is normal. QRS interval is normal. QT interval is normal. No Q waves. T waves are Normal. No ST changes noted. Interpreted by me. Reviewed by me. Administered Medications: 09:38 Drug: NS 0.9% IV 1000 ml IV at 1 bolus Per protocol; 1000 mL bolus Route: IV; Rate: 1 ll1 bolus; Site: right antecubital; 12:43 Follow up: Response: No adverse reaction; IV Status: Completed infusion cp4 09:38 Drug: Promethazine IVP 12.5 mg IVP once Route: IVP; Site: right antecubital; ll1 12:42 Follow up: Response: No adverse reaction cp4 Disposition Summary: 09/15/23 12:20 Hospitalization Ordered Notes: Hospitalization Status: Observation rt Provider: Perfecto Bran rt Condition: Stable rt Problem: new rt Symptoms: are unchanged rt Bed/Room Type: Standard rt Location: Telemetry/MedSurg (observation)(09/15/23 22:21) ty Room Assignment: 422(09/15/23 22:21) ty Diagnosis - Chest pain rt - Near syncope rt - Sinus tachycardia rt Discharge Instructions: - Discharge Summary Sheet ll1 Forms: - Work release form ll1 - Medication Reconciliation Form rt - SBAR form rt - Leadership Thank You Letter rt Signatures: Dispatcher [employer] Lupe Johnson RN RN iw Lewis, Lynsay, RN RN ll1 Rex Briscoe MD MD rt Meera Sequeira 6 Keegan Quinteros MD MD ec2 Narinder Hutchinson ty May Grady cp4 Corrections: (The following items were deleted from the chart) 14:18 12:20 Telemetry/MedSurg (observation) rt bc6 14:18 12:20 rt bc6 22:21 14:18 [facility] ER HOLD bc6 ty 22:21 14:18 ERHOLD- bc6 ty
--- NOTE | 2023-09-15 12:21 | ER ---
Nurse's Notes [facility] Name: Dinora Crocker Age: 43 yrs Sex: Female : 1980 Arrival Date: 09/15/2023 Time: 08:25 Bed 7 Private MD: None, None Diagnosis: Chest pain;Near syncope;Sinus tachycardia Presentation: 09/14 08:35 Chief complaint: Patient states: i had back surgery on Wednesday , on Wednesday they tried iw to remove my drain tube and they could not get it out, had to have surgery again to remove it , I feel bad, I feel nauseous, not feeling right , feel like I'm not getting good oxygen, Dr. Daniel did surgery at [facility]. Coronavirus screen: At this time, the client does not indicate any symptoms associated with coronavirus-19. Ebola Screen: Patient negative for fever greater than or equal to 101.5 degrees Fahrenheit, and additional compatible Ebola Virus Disease symptoms Patient denies exposure to infectious person. Patient denies travel to an Ebola-affected area in the 21 days before illness onset. No symptoms or risks identified at this time. Initial Sepsis Screen: Does the patient meet any 2 criteria? No. Patient's initial sepsis screen is negative. Does the patient have a suspected source of infection? No. Patient's initial sepsis screen is negative. Risk Assessment: Do you want to hurt yourself or someone else? Patient reports no desire to harm self or others. Onset of symptoms was September 14, 2023. 08:35 Method Of Arrival: Wheelchair iw 08:35 Acuity: FRANCY 3 iw Triage Assessment: 13:40 General: Appears in no apparent distress. Behavior is calm, cooperative, appropriate cp4 for age. Pain: Denies pain. 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 - Social history:: Smoking status: Patient/guardian denies using tobacco, the patient reports quitting approximately 4 years ago. - Family history:: not pertinent. Screenin:[facility] ED Fall Risk Assessment (Adult) History of falling in the last 3 months, ll1 including since admission No falls in past 3 months (0 pts) Confusion or Disorientation No (0 pts) Intoxicated or Sedated No (0 pts) Impaired Gait Yes (1 pt) Mobility Assist Device Used Yes (1 pt) Altered Elimination No (0 pt) Score/Fall Risk Level 0 - 2 = Low Risk Oriented to surroundings, Maintained a safe environment, Educated pt \T\ family on fall prevention, incl call for assistance when getting out of bed, Hourly rounding (assess needs \T\ fall precautionary measures) done. Abuse screen: Denies threats or abuse. Nutritional screening: No deficits noted. Tuberculosis screening: No symptoms or risk factors identified. Assessment: 08:56 Reassessment: Dr. Briscoe at . ll1 09:14 Reassessment: No changes from previously documented assessment. To CT via stretcher. ll1 09:57 Reassessment: No changes from previously documented assessment. Patient and/or family ll1 updated on plan of care and expected duration. Pain level reassessed. Patient is alert, oriented x 3, equal unlabored respirations, skin warm/dry/pink. Vital Signs: 08:35 BP 122 / 72; Pulse 100; Resp 18; Temp 97.8; Pulse Ox 100% on R/A; Weight 90.72 kg; iw Height 5 ft. 5 in. ; 10:00 BP 120 / 67; Pulse 85; Resp 17; Pain 2/10; ll1 11:00 BP 118 / 73; Pulse 99; Resp 18; Pulse Ox 100% ; cp4 12:00 BP 127 / 79; Pulse 99; Resp 18; Pulse Ox 100% ; cp4 13:00 BP 116 / 61; Pulse 81; Resp 18; Temp 97.8; Pulse Ox 100% ; cp4 08:35 Body Mass Index 33.28 (90.72 kg, 165.1 cm) iw 10:00 Pain Scale: Adult ll1 ED Course: 08:27 Patient arrived in ED. mr 08:27 None, None is Private Physician. mr 08:37 Triage completed. iw 08:38 Arm band placed on. iw 08:39 Keegan Quinteros MD is Attending Physician. ec2 08:42 Dianna Franklin, ZENIA is Primary Nurse. ll1 08:54 Rex Briscoe MD is Attending Physician. rt 09:10 Initial lab(s) drawn, by me, sent to lab. Inserted saline lock: 20 gauge in right ll1 antecubital area, using aseptic technique. Blood collected. 09:23 CT Chest For PE Angio In Process Unspecified. EDMS 09:38 Client placed on continuous cardiac and pulse oximetry monitoring. NIBP monitoring ll1 applied. vehicle monitor technician on. 09:39 No provider procedures requiring assistance completed. EKG done, by ED staff, reviewed ll1 by Rex Briscoe MD. 09:50 Assisted to bedside commode. new oconnell inserted after urination, tolerated well. ll1 09:57 Lab(s) recollected, by me, sent to lab. ll1 10:04 Report given to ZENIA Olvera. ll1 10:05 TSH Sent. ll1 10:05 Troponin HS Sent. ll1 10:05 Magnesium Sent. ll1 10:05 LFT's Sent. ll1 10:05 Basic Metabolic Panel Sent. ll1 10:56 Primary Nurse role handed off by Dianna Franklin RN cp4 10:56 May Grady is Primary Nurse. cp4 10:59 Assisted to bedside commode. cp4 12:19 Perfecto Bran MD is Hospitalizing Provider. rt 13:39 Bed in low position. Call light in reach. Side rails up X 1. Provided Education on: cp4 admission. 13:39 Patient admitted, IV remains in place. cp4 Administered Medications: 09:38 Drug: NS 0.9% IV 1000 ml IV at 1 bolus Per protocol; 1000 mL bolus Route: IV; Rate: 1 ll1 bolus; Site: right antecubital; 12:43 Follow up: Response: No adverse reaction; IV Status: Completed infusion cp4 09:38 Drug: Promethazine IVP 12.5 mg IVP once Route: IVP; Site: right antecubital; ll1 12:42 Follow up: Response: No adverse reaction cp4 Medication: 08:57 VIS not applicable for this client. ll1 Outcome: 12:20 Decision to Hospitalize by Provider. rt 13:39 Admitted to Tele cp4 13:39 Admitted to ER Hold. Please see [facility] for further documentation. 13:39 Condition: stable 13:39 Discharge instructions given to Instructed on discharge instructions, follow up and referral plans. Demonstrated understanding of instructions, follow-up care, 23:43 Patient left the ED. vc1 Signatures: Dispatcher [employer] EDCindy Gutierrez, Reg Reg mr GoldsteinLupe, RN RN Dianna Aguirre RN RN ll1 Lyssa Lea RN RN vc1 Rex Briscoe MD MD rt Keegan Quinteros MD MD ec2 May Grady 4 Corrections: (The following items were deleted from the chart) 08:38 08:35 Pulse 104bpm; Resp 18bpm; Pulse Ox 100% RA; Temp 97.8F; 90.72 kg; Height 5 ft. 5 iw in.; BMI: 33.2; iw
[2023-09-15 13:45] VITALS: BMI 33.3
--- NOTE | 2023-09-15 13:47 | RAD REPORT ---
EXAM DESCRIPTION: US - Extrem Venous W Compress Tereso - 09/15/2023 1:34 pm CLINICAL HISTORY: Swelling, pain COMPARISON: None. TECHNIQUE: Real-time sonographic evaluation of the bilateral lower extremity deep venous systems was performed. FINDINGS: Normal compressibility, flow augmentation, phasic flow and spontaneous flow is identified in both the left and right lower extremity deep venous systems. No intraluminal filling defects seen. IMPRESSION: No DVT in either lower extremity.
[2023-09-15] MEDS: NA CHLORIDE 0.9% 1,000 ML IV SCH (13:53)
--- NOTE | 2023-09-15 14:04 | P.HP ---
Certification for Inpatient Patient admitted to: Observation With expected LOS: <2 Midnights Patient will require the following post-hospital care: None Practitioner: I am a practitioner with admitting privileges, knowledge of patient current condition, hospital course, and medical plan of care. Services: Services provided to patient in accordance with Admission requirements found in Title 42 Section 412.3 of the Code of Federal Regulations Patient History Date of Service: 09/15/23 Reason for admission: Chest pain History of Present Illness: 43-year-old female with history of DJD, DVT/PE presents the emergency department with chief complaint of nausea, shortness of breath after surgery. She had a discectomy/laminectomy performed on 09/10/[address] Daniel at [facility]. She subsequently had a surgical drain removed on Wednesday09/13/2023. She reports last few days she has been feeling nauseous, having tremors of the upper extremities as well as shortness of breath and "not feeling right". She was evaluated in the emergency department her labs are significant for white blood cell 12.1 initial high sensitive troponin 3.8 CTA of the chest was performed which was negative for pulmonary embolism, did show mild bilateral groundglass opacities likely representing mild pulmonary edema. Bilateral venous Dopplers were also obtained which were negative for DVT. It was noted that patient currently had a scopolamine patch applied, she also reports she taken Benadryl last night for itching with her [place]. She was also noted to have sinus tachycardia with a rate around 105-110. Patient did also report some discomfort in her chest, ED provider wishes to admit patient under observation for chest pain, tachycardia. Allergies acetaminophen [From [place]] Allergy (Intermediate, Verified 03/30/12 12:23) Itching hydrocodone bitartrate [From [place]] Allergy (Intermediate, Verified 03/30/12 12:23) Itching ibuprofen [From Advil] Allergy (Mild, Verified 03/30/12 12:23) Anaphylaxis sulfamethoxazole [From Bactrim DS] Allergy (Mild, Verified 08/20/11 10:03) Hives/Rash trimethoprim [From Bactrim DS] Allergy (Mild, Verified 08/20/11 10:03) Hives/Rash Home Medications: Cephalexin [Keflex] 500 mg PO Q6HR 09/15/23 Hydrocodone/Acetaminophen [Hydrocodon-Acetaminophn 10-325] 1 each PO Q6HR 09/15/23 Ibuprofen 800 mg PO TID 09/15/23 Metaxalone 1 tab PO BID 09/15/23 Ondansetron [Ondansetron Odt] 8 mg PO BID 09/15/23 - Past Medical/Surgical History Has patient received pneumonia vaccine in the past: No -: DJD -: [id number] -: Discectomy/laminectomy -: Hysterectomy Psychosocial/ Personal History: Lives at home with family - Family History Family History: Reviewed- Non-Contributory - Social History Smoking Status: Never smoker Alcohol use: No CD- Drugs: No Caffeine use: Yes Place of Residence: Home Review of Systems 10-point ROS is otherwise unremarkable Cardiovascular: Light [place]adedness Neurological: Other (Tremor) Physical Examination - Physical Exam General: Alert, In no apparent distress, Oriented x3 HEENT: Atraumatic, PERRLA Neck: Supple, 2+ carotid pulse no bruit, No LAD Respiratory: Clear to auscultation bilaterally, Normal air movement Cardiovascular: Regular rate/rhythm, Normal S1 S2 Gastrointestinal: Normal bowel sounds, No tenderness Musculoskeletal: No tenderness Integumentary: No rashes Neurological: Normal speech, Normal strength at 5/5 x4 extr, Normal tone, Normal affect - Studies Laboratory Data (last 24 hrs) 09/15/23 09/15/23 09/15/23 09:55 09:10 09:10 WBC 12.10 H Hgb 12.9 Hct 37.6 Plt Count 249 PT 11.8 INR 1.07 Sodium 140 Potassium 3.5 BUN 8 Creatinine 0.79 Glucose 100 Magnesium 1.7 Total Bilirubin 0.5 AST 21 ALT 30 Alkaline Phosphatase 45 Assessment and Plan - Plan Assessment: Chest pain rule out ACS Dizziness and giddiness, nausea Sinus tachycardia Recent history of discectomy/laminectomy History of DVT/PE Plan: Chest pain rule out ACS Dizziness and giddiness, nausea Sinus tachycardia Initial troponin negative, will trend Monitor on telemetry CT negative for PE, ultrasound negative for DVT I believe most of her symptoms are related to scopolamine, Benadryl anticholinergic effects Scopolamine patch removed around 1300 today Recent history of discectomy/laminectomy Outpatient follow-up History of DVT/PE No DVT or PE currently, continue Eliquis as prescribed by her surgeon DVT PPX: Eliquis Code status: Full Discharge Plan: Home Plan to discharge in: 24 Hours - Advance Directives Does patient have a Living Will: No Does patient have a Durable POA for Healthcare: No - Code Status/Comfort Care Code Status Assessed: Yes (Full code) Critical Care: No Time Spent Managing Pts Care (In Minutes): 70
[2023-09-15] MEDS ORDERED: INFLUENZA VACCINE (for 6+ mo) 0.5 ML DOSE IMVAC ONE (15:00)
[2023-09-16] MEDS: PROMETHAZINE INJ 25 MG/ML AMP IV ONE (00:16)
[2023-09-16 00:35] VITALS: O2SAT 100
--- NOTE | 2023-09-16 06:27 | P.DS ---
Admission Date: 09/15/23 Discharge Date: 09/16/23 Disposition: ROUTINE DISCHARGE Discharge Condition: GOOD Reason for Admission: Chest pain Brief History of Present Illness: 43-year-old female with history of DJD, DVT/PE presents the emergency department with chief complaint of nausea, shortness of breath after surgery. She had a discectomy/laminectomy performed on 09/10/[address] Daniel at [facility]. She subsequently had a surgical drain removed on Wednesday09/13/2023. She reports last few days she has been feeling nauseous, having tremors of the upper extremities as well as shortness of breath and "not feeling right". She was evaluated in the emergency department her labs are significant for white blood cell 12.1 initial high sensitive troponin 3.8 CTA of the chest was performed which was negative for pulmonary embolism, did show mild bilateral groundglass opacities likely representing mild pulmonary edema. Bilateral venous Dopplers were also obtained which were negative for DVT. It was noted that patient currently had a scopolamine patch applied, she also reports she taken Benadryl last night for itching with her [place]. She was also noted to have sinus tachycardia with a rate around 105-110. Patient did also report some discomfort in her chest, ED provider wishes to admit patient under observation for chest pain, tachycardia. Hospital Course: Assessment: Chest pain rule out ACS Dizziness and giddiness, nausea Sinus tachycardia Recent history of discectomy/laminectomy History of DVT/PE 43-year-old female was admitted to the hospital for chest pain, shortness of breath after surgery. She was also noted to be mildly tachycardic and having some tremors, "not feeling herself". She presented wearing a scopolamine patch that she had placed after surgery, had also taken some Benadryl the night before. She was admitted under observation troponins were trended and remained negative, monitor on telemetry without significant findings overnight. CTA of the chest which was also performed which was negative for pulmonary embolism And venous Dopplers lower extremities negative for DVT. Scopolamine patch was removed and patient's symptoms improved overnight, she is stable for discharge and follow-up outpatient with her primary care doctor and spinal surgeon. Vital Signs/Physical Exam: Temp Pulse Resp BP Pulse Ox 97.8 F 82 16 103/52 L 97 09/16/23 04:00 09/16/23 04:00 09/16/23 04:00 09/16/23 04:00 09/16/23 04:00 General: Alert, In no apparent distress, Oriented x3 HEENT: Atraumatic, PERRLA Neck: Supple, JVD not distended Respiratory: Clear to auscultation bilaterally, Normal air movement Cardiovascular: Regular rate/rhythm, Normal S1 S2 Gastrointestinal: Normal bowel sounds Musculoskeletal: No tenderness Integumentary: No rashes Neurological: Normal speech, Normal tone Laboratory Data at Discharge: WBC 12.10 thou/uL (4.3-10.9) H 09/15/23 09:10 Hgb 12.9 g/dL (12.0-15.0) 09/15/23 09:10 Hct 37.6 % (36.0-45.0) 09/15/23 09:10 Plt Count 249 thou/uL (152-406) 09/15/23 09:10 PT 11.8 SECONDS (9.5-12.5) 09/15/23 09:10 INR 1.07 09/15/23 09:10 Sodium 140 mEq/L (136-145) 09/15/23 09:55 Potassium 3.5 mEq/L (3.5-5.1) 09/15/23 09:55 BUN 8 mg/dL (7-18) 09/15/23 09:55 Creatinine 0.79 mg/dL (0.55-1.02) 09/15/23 09:55 Glucose 100 mg/dL (74-106) 09/15/23 09:55 Magnesium 1.7 mg/dL (1.6-2.4) 09/15/23 09:55 Total Bilirubin 0.5 mg/dL (0.2-1.0) 09/15/23 09:55 AST 21 U/L (15-37) 09/15/23 09:55 ALT 30 U/L (13-56) 09/15/23 09:55 Alkaline Phosphatase 45 U/L (45-117) 09/15/23 09:55 Home Medications: Cephalexin [Keflex] 500 mg PO Q6HR 09/15/23 Hydrocodone/Acetaminophen [Hydrocodon-Acetaminophn 10-325] 1 each PO Q6HR 09/14 Ibuprofen 800 mg PO TID 09/15/23 Metaxalone 1 tab PO BID 09/15/23 Ondansetron [Ondansetron Odt] 8 mg PO BID 09/15/23 Physician Discharge Instructions: 43-year-old female was admitted to the hospital for chest pain, shortness of breath after surgery. She was also noted to be mildly tachycardic and having some tremors, "not feeling herself". She presented wearing a scopolamine patch that she had placed after surgery, had also taken some Benadryl the night before. She was admitted under observation troponins were trended and remained negative, monitor on telemetry without significant findings overnight. CTA of the chest which was also performed which was negative for pulmonary embolism and venous Dopplers lower extremities negative for DVT. Scopolamine patch was removed and patient's symptoms improved overnight, she is stable for discharge and follow-up outpatient with her primary care doctor and spinal surgeon. Continue home medications as prescribed Please follow-up with your primary care doctor in 1 to 2 weeks Please arrange for close follow-up with your spinal surgeon Diet: Regular Activity: Ad donte Followup: NONE,NONE [Primary Care Provider] - Time spent managing pt's care (in minutes): 30
[2023-09-16 08:14] LABS: Absolute Eosinophils 0.2 K/uL (0-0.5); Absolute Lymphocytes (CBC) 2.8 K/uL (0.7-4.9); Absolute Monocytes 0.8 K/uL (0.1-1.3); Absolute Neutrophil 4.1 K/uL (1.8-8.0); Basophils % 0.4 % (0-1.3); Eosinophils % 2.8 % (0-4.4); Hematocrit 36.2 % (36.0-45.0); Hemoglobin 12.4 g/dL (12.0-15.0); Lymphocytes % 35.6 % (15.3-44.8); MCHC 34.4 g/dL (32.0-36.0); MCV 96.1 fL (80-100); MPV 6.7 fL (7.6-11.3); Monocytes % 9.5 % (3.3-12.3); Neutrophils % 51.7 % (41.7-73.7); Nucleated Red Blood Cells % 0.1 % (0-0); Platelets 229 thou/uL (152-406); RBC Red Blood Cell Count 3.77 M/uL (3.86-4.86); Red Cell Distribution Width 13.7 % (12.1-15.2)
[2023-09-16] MEDS ORDERED: SODIUM CHLORIDE 0.9% 10ML INJ IV PRN (08:19)
[2023-09-16] MEDS ORDERED: ONDANSETRON 4 MG/2 ML VIAL IV PRN (08:19)
[2023-09-16 08:44] LABS: Anion Gap 5.9 mEq/L (5.0-15.0); Potassium 3.9 mEq/L (3.5-5.1); Thyroid Stimulating Hormone 1.79 uIU/mL (0.358-3.740); Troponin High Sensitivity 3.5 pg/mL (<58.9)
[2023-09-16] MEDS: PANTOPRAZOLE 40 MG INJ IVP SCH (09:43)
[2023-09-16] MEDS: SUCRALFATE 1 GM TABLET PO SCH (11:35)
--- NOTE | 2023-09-16 14:19 | P.PN ---
Date of Service: 09/16/23 Subjective: Still with C/O nausea, "not feeling right" No acute events overnight ROS: 10 point ROS as noted above, otherwise negative Physical exam GEN: Alert, oriented, NAD HEENT: Normal conjunctiva, sclera anicteric CV: Regular rate and rhythm, no edema Pulm: Nonlabored respirations on room air ABD: Soft, nontender, nondistended MSK: No joint tenderness Integumentary: No rashes Neuro: Normal speech, normal affect Vitals reviewed Assessment: Chest pain rule out ACS Dizziness and giddiness, nausea Sinus tachycardia Recent history of discectomy/laminectomy History of DVT/PE Plan: Chest pain rule out ACS Dizziness and giddiness, nausea Sinus tachycardia Trops negative x3 Monitor on telemetry-no acute events thus far CT negative for PE, ultrasound negative for DVT Scopolamine discontinued, she did receive a dose of Phenergan overnight She reports history of allergies [place]-possibly contributing, discontinue [place] substitute tramadol X 1 trial benzo for anxiety Recent history of discectomy/laminectomy Outpatient follow-up History of DVT/PE No DVT or PE currently, continue Eliquis as prescribed by her surgeon DVT PPX: Eliquis Code status: Full Discharge Plan: Home Plan to discharge in: 24 Hours Time Spent Managing Pts Care (In Minutes): 35 <Alec Herndon - Last Filed: 09/16/23 14:16> Patient seen and examined on rounds this morning with TRIMMING ASSEMBLER Yanick. Agree with plan as noted above with the following additions/corrections: CT negative for PE. Pt reports nausea yesterday. h/o gastric ulcer many years ago. has been taking a lot of ibuprofen per patient for her back pain start IV PPI and carafate unclear etiology of tachycardia if not secondary to anticholinergic effects, possibly pain vs anxiety reportedly 90-100 at rest and up to 130s with ambulation to bathroom in room avoid anticholinergic medications <Perfecto Bran - Last Filed: 09/16/23 17:22>
[2023-09-16] MEDS: ALPRAZOLAM 0.25 MG TABLET PO ONE (15:16)
[2023-09-16] MEDS: TRAMADOL HCL 50 MG TAB PO PRN (15:20)
[2023-09-17 07:27] LABS: Absolute Basophils 0.1 K/uL (0-0.5); Absolute Eosinophils 0.3 K/uL (0-0.5); Absolute Lymphocytes (CBC) 2.8 K/uL (0.7-4.9); Absolute Monocytes 0.9 K/uL (0.1-1.3); Absolute Neutrophil 4.8 K/uL (1.8-8.0); Basophils % 1.1 % (0-1.3); Eosinophils % 3.5 % (0-4.4); Hematocrit 36.1 % (36.0-45.0); Hemoglobin 12.4 g/dL (12.0-15.0); Lymphocytes % 31.7 % (15.3-44.8); MCH 32.4 pg (27.0-35.0); MCHC 34.3 g/dL (32.0-36.0); MCV 94.6 fL (80-100); MPV 6.9 fL (7.6-11.3); Monocytes % 9.8 % (3.3-12.3); Neutrophils % 53.9 % (41.7-73.7); Nucleated Red Blood Cells % 0.1 % (0-0); Platelets 192 thou/uL (152-406); RBC Red Blood Cell Count 3.82 M/uL (3.86-4.86); Red Cell Distribution Width 13.5 % (12.1-15.2)
[2023-09-17 08:08] LABS: Anion Gap 9.7 mEq/L (5.0-15.0); Potassium 3.7 mEq/L (3.5-5.1)
[2023-09-17 08:44] LABS: Blood Morphology Comment NOT SEEN (NOT SEEN); Platelet Estimate ADEQ; White Blood Cell Scan OK (OK)
[2023-09-17] MEDS: NA CHLORIDE 0.9% 500 ML IV ONE (12:32)
--- NOTE | 2023-09-17 14:21 | P.PN ---
Date of Service: 09/17/23 Subjective: Still with C/O nausea, "not feeling right" HR up to 140s with minimal movement Also feeling unsteady/motion sickness ROS: 10 point ROS as noted above, otherwise negative Physical exam GEN: Alert, oriented, NAD HEENT: Normal conjunctiva, sclera anicteric CV: Regular rate and rhythm, no edema Pulm: Nonlabored respirations on room air ABD: Soft, nontender, nondistended MSK: No joint tenderness Integumentary: No rashes Neuro: Normal speech, normal affect Vitals reviewed Assessment: Chest pain rule out ACS Dizziness and giddiness, nausea Sinus tachycardia Orthostatic intolerance Recent history of discectomy/laminectomy History of DVT/PE Plan: Chest pain rule out ACS Dizziness and giddiness, nausea Sinus tachycardia Orthostatic intolerance Trops negative x3 Monitor on telemetry-no acute events thus far CT negative for PE, ultrasound negative for DVT Scopolamine discontinued avoid all anticholinergics She reports history of allergies [place]-possibly contributing, discontinue [place] substitute tramadol Patient has been having palpitations/tachycardia when standing or walking short distances Heart rate up to 140s with short distances of ambulation Feels dizzy/lightheaded/short of breath when standing/attempting ambulation Orthostatic vital signs-heart rate increased but blood pressure did not drop Suspect orthostatic intolerance possibly related to use of anticholinergic medications Continue supportive careIV fluids overnight Recent history of discectomy/laminectomy Outpatient follow-up History of DVT/PE No DVT or PE currently, continue Eliquis as prescribed by her surgeon DVT PPX: Eliquis Code status: Full Discharge Plan: Home Plan to discharge in: 24 Hours Time Spent Managing Pts Care (In Minutes): 35 <Alec Herndon - Last Filed: 09/17/23 14:17> Patient seen and examined on rounds this morning with EMIL Herndon. Agree with plan as noted above with the following additions/corrections: nausea/abd pain improved, tolerated some liquids this morning after sitting up and standing up this morning, developed severe dizziness, associated with seeing stars outside of her window, and reports new fullness/congestion feeling of her right face. denies any history of tachycardia or similar symptoms. suspect some orthostatic intolerance as noted above she has been taking eliquis as prescribed by her surgeon for dvt prophylaxis (home med) no PE/DVT on initial studies no drop in BP when orthostatics checked, but HR did go up. <Perfecto Bran - Last Filed: 09/17/23 17:43>
--- NOTE | 2023-09-17 17:31 | EKG ---
Test Date: 2023-09-15 Test Time: 09:48:04 Lint Cleaner: ROSE MEASUREMENT RESULTS: Intervals: Rate: 100 NC: 118 QRSD: 76 QT: 344 QTc: 443 [employer]: P: 41 NC: 118 QRS: 56 T: 47 INTERPRETIVE STATEMENTS: Normal sinus rhythm Normal ECG Compared to ECG 09/15/2023 08:33:04 No significant changes Electronically Signed On 09-17-23 17:24:15 CDT by Moris Rivas
--- NOTE | 2023-09-17 17:32 | EKG ---
Test Date: 2023-09-15 Test Time: 08:33:04 Pressure Test Operator: ERIN MEASUREMENT RESULTS: Intervals: Rate: 94 [place]: 124 QRSD: 80 QT: 354 QTc: 442 Roy: P: 35 [place]: 124 QRS: 48 T: 39 INTERPRETIVE STATEMENTS: Normal sinus rhythm Normal ECG Compared to ECG 10/07/2019 10:57:50 Sinus arrhythmia no longer present Short [place] interval no longer present Electronically Signed On 09-17-23 17:24:39 CDT by Moris Rivas
[2023-09-17] MEDS: NA CHLORIDE 0.9% 1,000 ML IV SCH (20:19)
[2023-09-18] MEDS: ACETAMINOPHEN 500 MG TAB PO PRN (03:24)
[2023-09-18 04:09] LABS: Hematocrit 34.5 % (36.0-45.0); MCH 33.3 pg (27.0-35.0); MCHC 34.8 g/dL (32.0-36.0); MCV 95.6 fL (80-100); MPV 7.1 fL (7.6-11.3); Platelets 233 thou/uL (152-406); RBC Red Blood Cell Count 3.61 M/uL (3.86-4.86); Red Cell Distribution Width 13.3 % (12.1-15.2)
[2023-09-18 04:28] LABS: Anion Gap 8.8 mEq/L (5.0-15.0); Potassium 3.8 mEq/L (3.5-5.1)
[2023-09-18] MEDS: POTASSIUM CL SA 10 MEQ TAB PO ONE (09:06)
[2023-09-18] MEDS: POLYETHYL GLY 3350 17 GM/DOSE PO PRN (10:29)
[2023-09-18] MEDS: DOCUSATE NA 100 MG CAP PO SCH (10:29)
[2023-09-18 10:41] LABS: ALT/SGPT 32 U/L (13-56); AST/SGOT 19 U/L (15-37); Albumin 2.8 g/dL (3.4-5.0); Albumin/Globulin Ratio 0.9 (1.1-1.8); Alkaline Phosphatase 45 U/L (45-117); Bilirubin Direct < 0.1 mg/dL (0-0.2); Bilirubin Indirect, Calculated ND mg/dL (0.2-0.8); Bilirubin Total 0.4 mg/dL (0.2-1.0); Globulin 3.1 g/dL (2.3-3.5); Protein, Total 5.9 g/dL (6.4-8.2)
--- NOTE | 2023-09-18 12:12 | P.PN ---
Date of Service: 09/18/23 Subjective: Having nausea heart rate increases with standing/ambulation dizzy/lightheaded with standing ROS: 10 point ROS as noted above, otherwise negative Physical exam GEN: Alert, oriented, NAD HEENT: Normal conjunctiva, sclera anicteric CV: Regular rate and rhythm, no edema Pulm: Nonlabored respirations on room air ABD: Soft, nontender, nondistended MSK: No joint tenderness Integumentary: No rashes Neuro: Normal speech, normal affect Vitals reviewed Assessment: Chest pain rule out ACS Dizziness and giddiness, nausea Sinus tachycardia Orthostatic intolerance Recent history of discectomy/laminectomy History of DVT/PE Plan: Chest pain rule out ACS Dizziness and giddiness, nausea Sinus tachycardia Orthostatic intolerance Trops negative x3 Monitor on telemetry-no acute events thus far CT negative for PE, ultrasound negative for DVT Scopolamine discontinued avoid all anticholinergics She reports history of allergies [place]-possibly contributing, discontinue [place] substitute tramadol Patient has been having palpitations/tachycardia when standing or walking short distances Heart rate up to 140s with short distances of ambulation Feels dizzy/lightheaded/short of breath when standing/attempting ambulation Orthostatic vital signs-heart rate increased but blood pressure did not drop Suspect orthostatic intolerance possibly related to use of anticholinergic medications Continue supportive careIV fluids Was able to ambulate with PT yesterday unable to get to bathroom without assistance/dizziness Recent history of discectomy/laminectomy Outpatient follow-up History of DVT/PE No DVT or PE currently, continue Eliquis as prescribed by her surgeon DVT PPX: Eliquis Code status: Full Discharge Plan: Home Plan to discharge in: 24 Hours Time Spent Managing Pts Care (In Minutes): 35 <Alec Herndon - Last Filed: 09/18/23 12:10> Patient seen and examined on rounds this morning with EMIL Herndon. Agree with plan as noted above with the following additions/corrections: Symptoms improving, but still having some occasional dizziness with change in position was able to shower and ambulate around nurse station with PT yesterday with minimal to no symptoms, however after returning back to room and getting back in bed, she got up to sink and felt dizzy symptoms becoming more intermittent and less pronounced suspect some degree of intravascular depletion and anticholinergics may benefit from some albumin with fluid if no further improvement, will consider low dose beta darien orthostatic BP negative <Perfecto Bran - Last Filed: 09/18/23 16:50>
[2023-09-18] MEDS: ALBUMIN HUM 5% 500 ML IV SCH (15:50)
[2023-09-19 03:55] LABS: Hematocrit 33.1 % (36.0-45.0); Hemoglobin 11.5 g/dL (12.0-15.0); MCH 33.1 pg (27.0-35.0); MCHC 34.8 g/dL (32.0-36.0); MCV 95.1 fL (80-100); Platelets 237 thou/uL (152-406); RBC Red Blood Cell Count 3.48 M/uL (3.86-4.86); Red Cell Distribution Width 13.5 % (12.1-15.2)
[2023-09-19 04:03] LABS: Anion Gap 8.9 mEq/L (5.0-15.0); Potassium 3.9 mEq/L (3.5-5.1)
[2023-09-19 07:50] VITALS: BP 99/57; TEMP 97.2
--- NOTE | 2023-09-19 11:36 | P.DS ---
Admission Date: 09/17/23 Discharge Date: 09/19/23 Disposition: ROUTINE DISCHARGE Discharge Condition: GOOD Reason for Admission: Chest pain Brief History of Present Illness: 43-year-old female with history of DJD, DVT/PE presents the emergency department with chief complaint of nausea, shortness of breath after surgery. She had a discectomy/laminectomy performed on 09/10/[address] Daniel at [facility]. She subsequently had a surgical drain removed on Wednesday09/13/2023. She reports last few days she has been feeling nauseous, having tremors of the upper extremities as well as shortness of breath and "not feeling right". She was evaluated in the emergency department her labs are significant for white blood cell 12.1 initial high sensitive troponin 3.8 CTA of the chest was performed which was negative for pulmonary embolism, did show mild bilateral groundglass opacities likely representing mild pulmonary edema. Bilateral venous Dopplers were also obtained which were negative for DVT. It was noted that patient currently had a scopolamine patch applied, she also reports she taken Benadryl last night for itching with her [place]. She was also noted to have sinus tachycardia with a rate around 105-110. Patient did also report some discomfort in her chest, ED provider wishes to admit patient under observation for chest pain, tachycardia. Hospital Course: Patient was admitted to the hospital on Thursday 09/14 for chest pain, nausea, feeling unwell. She recently had a lumbar laminectomy/discectomy on 09/09 followed by a drain removal on 09/12 both under general anesthesia. On arrival to the hospital patient was noted to wearing scopolamine patch, she had also taken Benadryl the night before and she was mildly tachycardic, tremulous. It was believed that some of her symptoms related to anticholinergic adverse reaction. Her scopolamine patch was removed, troponins were trended and remained negative. The following day she was still experiencing some nausea, tachycardia, dizziness/lightheadedness with changes in position/ambulation. She reported a history of gastric ulcers in the past, she was given Carafate, Protonix and as needed Zofran which helped with her nausea. Today she is feeling much better, able to tolerate her diet overnight, heart rate has remained in the 80s overnight in sinus rhythm but does increase in to the 110's/120's with ambulation/changes in position. Orthostatic vitals demonstrated a increase in HR but no drop in BP. It is thought that the anticholingeric medications may be contributing to a POTS like reaction. This is improving as well, she was able to ambulate around the halls and to the bathroom with her walker without as much dizziness/lightheadedness. She is breathing well on room air. Stable for discharge today. She did report a previous allergy to [place], she was given tramadol instead which she reported seem to cause less adverse effects. Home medications Continue home medications as prescribed, we will recommend avoiding [place] and provide substitute prescription for tramadol until he can follow-up with your doctor on the of this month Take Tylenol rather than ibuprofen is much as possible to decrease risk of gastric ulcer/gastritis Take Eliquis as prescribed by your surgeon Continue other home medications as prescribed We will send your prescription to pharmacy for the following medications: Tramadol 50 mg by mouth 3 times daily as needed for pain Carafate 4 times daily for nausea Please take [id number] Nexium daily for the next 1 month Recommend follow-up with general surgery as scheduled on 09/20 Please follow-up with your primary care doctor in 1 to 2 weeks Also recommend follow-up with GI at some point for further evaluation of nausea/vomiting and possible endoscopy Assessment: Chest pain rule out ACS Dizziness and giddiness, nausea Sinus tachycardia Orthostatic intolerance Recent history of discectomy/laminectomy History of DVT/PE Vital Signs/Physical Exam: Temp Pulse Resp BP Pulse Ox 97.2 F 89 16 99/57 L 99 09/19/23 07:23 09/19/23 07:23 09/19/23 08:33 09/19/23 07:23 09/19/23 08:33 General: Alert, In no apparent distress, Oriented x3 HEENT: Atraumatic, PERRLA Neck: Supple, JVD not distended Respiratory: Clear to auscultation bilaterally, Normal air movement Cardiovascular: Regular rate/rhythm, Normal S1 S2 Gastrointestinal: Normal bowel sounds Musculoskeletal: No tenderness Integumentary: No rashes Neurological: Normal speech, Normal tone Laboratory Data at Discharge: WBC 8.20 thou/uL (4.3-10.9) 09/19/23 03:17 Hgb 11.5 g/dL (12.0-15.0) L 09/19/23 03:17 Hct 33.1 % (36.0-45.0) L 09/19/23 03:17 Plt Count 237 thou/uL (152-406) 09/19/23 03:17 PT 11.8 SECONDS (9.5-12.5) 09/15/23 09:10 INR 1.07 09/15/23 09:10 Sodium 140 mEq/L (136-145) 09/19/23 03:17 Potassium 3.9 mEq/L (3.5-5.1) 09/19/23 03:17 BUN 7 mg/dL (7-18) 09/19/23 03:17 Creatinine 0.63 mg/dL (0.55-1.02) 09/19/23 03:17 Glucose 106 mg/dL (74-106) 09/19/23 03:17 Magnesium 1.7 mg/dL (1.6-2.4) 09/15/23 09:55 Total Bilirubin 0.4 mg/dL (0.2-1.0) 09/18/23 03:04 AST 19 U/L (15-37) 09/18/23 03:04 ALT 32 U/L (13-56) 09/18/23 03:04 Alkaline Phosphatase 45 U/L (45-117) 09/18/23 03:04 Home Medications: Cephalexin [Keflex*] 500 mg PO Q6HR 09/15/23 Hydrocodone/Acetaminophen [Hydrocodone-Acetamin 10-325 mg] 1 each PO Q6HR 09/15/23 Ibuprofen 800 mg PO TID 09/15/23 Metaxalone 1 tab PO BID 09/15/23 Ondansetron [Ondansetron Odt] 8 mg PO BID 09/15/23 Sucralfate [Carafate -Tab] 1 gm PO ACHS #120 tab 09/17/23 traMADol HCL [Ultram*] 50 mg PO Q6H PRN #15 tab 09/17/23 New Medications: Sucralfate [Carafate -Tab] 1 gm PO ACHS #120 tab traMADol HCL [Ultram*] 50 mg PO Q6H PRN #15 tab PRN Reason: Pain Physician Discharge Instructions: Physician discharge instructions Patient was admitted to the hospital on Thursday 09/14 for chest pain, nausea, feeling unwell. She recently had a lumbar laminectomy/discectomy on 09/09 followed by a drain removal on 09/12 both under general anesthesia. On arrival to the hospital patient was noted to wearing scopolamine patch, she had also taken Benadryl the night before and she was mildly tachycardic, tremulous. It was believed that some of her symptoms related to anticholinergic adverse reaction. Her scopolamine patch was removed, troponins were trended and remained negative. The following day she was still experiencing some nausea, tachycardia, dizziness/lightheadedness with changes in position/ambulation. She reported a history of gastric ulcers in the past, she was given Carafate, Protonix and as needed Zofran which helped with her nausea. Today she is feeling much better, able to tolerate her diet overnight, heart rate has remained in the 80s overnight in sinus rhythm but does increase in to the 110's/120's with ambulation/changes in position. Orthostatic vitals demonstrated a increase in HR but no drop in BP. It is thought that the anticholingeric medications may be contributing to a POTS like reaction. This is improving as well, she was able to ambulate around the halls and to the bathroom with her walker without as much dizziness/lightheadedness. She is breathing well on room air. Stable for discharge today. She did report a previous allergy to [place], she was given tramadol instead which she reported seem to cause less adverse effects. Home medications Continue home medications as prescribed, we will recommend avoiding [place] and provide substitute prescription for tramadol until he can follow-up with your doctor on the of this month Take Tylenol rather than ibuprofen is much as possible to decrease risk of gastric ulcer/gastritis Take Eliquis as prescribed by your surgeon Continue other home medications as prescribed We will send your prescription to pharmacy for the following medications: Tramadol 50 mg by mouth 3 times daily as needed for pain Carafate 4 times daily for nausea Please take [id number] Nexium daily for the next 1 month Recommend follow-up with general surgery as scheduled on 09/20 Please follow-up with your primary care doctor in 1 to 2 weeks Also recommend follow-up with GI at some point for further evaluation of nausea/vomiting and possible endoscopy Diet: [place] Activity: Fall precautions Followup: NONE,NONE [Primary Care Provider] - 1-2 Weeks Time spent managing pt's care (in minutes): 30
== END 2023-09-19 12:40 | disposition home or self-care (01) | DRG 313 ==
LOC: ER 08:25 → ERHOLD 13:00 → 4TH 22:36 → OBSVTOIN 09-17 14:14
PROVIDERS: ADMIT Hospitalist; ATTEND Hospitalist
DX: R07.89 Other chest pain (principal); G90.A Postural orthostatic tachycardia syndrome [POTS]; T44.3X5A Adverse effect of other parasympatholytics [anticholinergics and antimuscarinics] and spasmolytics, initial encounter; R11.0 Nausea; R42 Dizziness and giddiness; R00.0 Tachycardia, unspecified; Z79.01 Long term (current) use of anticoagulants; Z88.1 Allergy status to other antibiotic agents; Z88.5 Allergy status to narcotic agent; Z91.09 Other allergy status, other than to drugs and biological substances; Z86.718 Personal history of other venous thrombosis and embolism; Z86.711 Personal history of pulmonary embolism; Z90.710 Acquired absence of both cervix and uterus; Z87.891 Personal history of nicotine dependence; Z79.899 Other long term (current) drug therapy
CPT/HCPCS: 36415; 71275; 80048; 80076; 82565; 83735; 84439; 84443; 84484; 85025; 85027; 85610; 93005; 93970; 96361; 96374; 97116; 97162; 97530; 99285; C9113; G0378; J2550; J7030; J7040; P9045; Q9967